=== PATIENT | female | born 1950 | race Caucasian/White ===

== ENCOUNTER 2018-12-07 11:59 | Day surgery (SDC) | payer MEDICARE ==
[~2018-12-07 11:59] MED LIST: Dexamethasone 20 MG/5 ML VIAL ONE; Lidocaine 1% PF 5 ML VIAL ONE; Ondansetron PF 4 MG/2 ML Vial ONE; PROPOFOL 200 MG/20 ML VIAL ONE; ePHEDrine 50 MG/ML VIAL ONE
[2018-12-07] MEDS ORDERED: PROPOFOL 20 ML ONE (13:26)
[2018-12-07] MEDS ORDERED: Lidocaine 2% Jelly 5 ML TUBE ONE (13:26)
[2018-12-07] MEDS ORDERED: Fentanyl 100 MCG/2 ML VIAL ONE (13:31)
--- NOTE | 2018-12-07 14:42 | RAD ---
FIntraoperative imaging of the left shoulder: 12/07/2018 HISTORY: Reduction of the left glenohumeral joint FINDINGS: 2 coned down intraoperative images of the left shoulder provided. No evidence for dislocati on. Incompletely assessed degenerative change of the left acromioclavicular joint noted. IMPRESSION: No evidence for dislocation of the left glenohumeral joint.
--- NOTE | 2018-12-07 14:45 | RAD ---
LEFT ELBOW 2 VIEWS: Date: 12/07/18 INDICATION: Reduction. COMPARISON: Prior exam dated 12/07/18. IMPRESSION: Since the prior examination, there has been interval reduction of the posterolateral elbow dislocatio n. Radiocapitellar alignment appears near anatomic. There is mild suspected joint capsular distention . Total fluoroscopic time: 3.7 seconds. Total exposure: 0.11 mGy*cm^2. IMPRESSION: Reduction of the right elbow dislocation seen on the prior examination dated 12/07/18 at 1018 hours. POS: [facility]
--- NOTE | 2018-12-08 00:12 | OP ---
DATE OF PROCEDURE: 12/07/2018 PREOPERATIVE DIAGNOSES: 1. Left posterolateral elbow dislocation. 2. Left shoulder dislocation. POSTOPERATIVE DIAGNOSES: 1. Left posterolateral elbow dislocation. 2. Left shoulder dislocation. PROCEDURES PERFORMED: 1. Closed reduction and splint application of left elbow dislocation. 2. Examination under anesthesia, left shoulder. ANESTHESIA: General. INSERTER: Debra Kyle PA-C BLOOD LOSS: None. COMPLICATIONS: None. DRAINS: None. SPECIMEN: None. OUTCOME: Anatomic reduction of left posterolateral elbow dislocation and radiographic confirmation of left shoulder reduction. INDICATIONS: The patient is a 68-year-old lady who is status post ground-level fall after having a change in her antihypertensive medications. She reports that she got lightheaded and passed out and upon regaining consciousness, was found to have severe left shoulder pain and left elbow pain. She was seen and evaluated at the [facility] in [place], where successful closed reduction of left shoulder was obtained; however, the left elbow dislocation could not be reduced. As such, she was transferred to [facility] for orthopedic evaluation. Informed consent has been obtained, I believe all questions have been answered. DESCRIPTION OF PROCEDURE: The patient was brought to the operating room and a time-out performed followed by induction of general anesthesia. Next, the elbow was examined and still had residual dislocation in the posterior and lateral fashion. With gentle manipulation, the elbow could be reduced to an anatomic alignment. She was found to have instability when the elbow was brought back into full extension, however, at 90 degrees of flexion, there was good stability with yazidi of supination and pronation in an elbow that was stable through a range of motion from 20 degrees to approximately 140 degrees. Once reduced, AP and lateral C-arm images were obtained to confirm the anatomic reduction. This was done and then a long-arm well-padded posterior fiberglass splint was applied to the arm. Next, attention was placed on the shoulder. The emergency room physician in [place] felt that she had a successful reduction. This was checked with exam under anesthesia. The shoulder was found to have supple range of motion. This was followed by a true AP and trans-scapular Y x-ray using C-arm that confirmed anatomic reduction without fracture of the proximal humerus. At the completion of this, the patient was then transferred to recovery room in stable condition. There were no complications. She tolerated the procedure well. Job ID: [id number]
== END 2018-12-07 16:45 | disposition home or self-care (01) ==
LOC: SDC 11:59
PROVIDERS: ATTEND Orthopaedic Surgery
PROC: 2W3DX1Z Immobilization of Left Lower Arm using Splint (ICD-10-PCS; principal; 2018-12-07)
DX: S53.125A Posterior dislocation of left ulnohumeral joint, initial encounter (principal); S53.145A Lateral dislocation of left ulnohumeral joint, initial encounter; S43.005A Unspecified dislocation of left shoulder joint, initial encounter; I10 Essential (primary) hypertension; M19.90 Unspecified osteoarthritis, unspecified site; Z79.899 Other long term (current) drug therapy; Z91.048 Other nonmedicinal substance allergy status; W18.30XA Fall on same level, unspecified, initial encounter
CPT/HCPCS: 76000; 93005; 93010; J1100; J2001; J2405; J2704; J3010; J3490

== ENCOUNTER 2023-06-02 14:05 | Outpatient (CLI) | payer MEDICARE, OTHER ==
[~2023-06-02 14:05] MED LIST changes: -Dexamethasone 20 MG/5 ML VIAL ONE; +Iopamidol 370 76% 100 ML VIAL ONE; -Lidocaine 1% PF 5 ML VIAL ONE; -Ondansetron PF 4 MG/2 ML Vial ONE; -PROPOFOL 200 MG/20 ML VIAL ONE; -ePHEDrine 50 MG/ML VIAL ONE
== END 2023-06-02 14:06 | disposition home or self-care (01) ==
LOC: BICCT 14:05
PROVIDERS: ATTEND Physician Assistant Medical
DX: R10.32 Left lower quadrant pain (principal); K57.30 Diverticulosis of large intestine without perforation or abscess without bleeding; R19.4 Change in bowel habit; R14.0 Abdominal distension (gaseous); N32.89 Other specified disorders of bladder
CPT/HCPCS: 74177; 82565; Q9967

== ENCOUNTER 2025-09-07 20:52 | Emergency (ER) | payer MEDICARE | END 2025-09-07 22:38 | LOC: ERS 20:52 | DX: M79.601 Pain in right arm (principal); R58 Hemorrhage, not elsewhere classified; I10 Essential (primary) hypertension; Z79.899 Other long term (current) drug therapy ==